=== PATIENT | male | born 1985 | race Hispanic/Latino ===

== ENCOUNTER 2019-04-01 13:34 | Emergency (ER) | payer OTHER ==
[2019-04-01] MEDS ORDERED: NAPROXEN 500 MG TABLET ONE (14:13)
== END 2019-04-01 14:53 | disposition home or self-care (01) ==
LOC: EDH 13:34
DX: S93.492A Sprain of other ligament of left ankle, initial encounter (principal); F41.9 Anxiety disorder, unspecified; I10 Essential (primary) hypertension; Z72.0 Tobacco use; X50.0XXA Overexertion from strenuous movement or load, initial encounter; Y93.89 Activity, other specified; Y92.89 Other specified places as the place of occurrence of the external cause; Y99.8 Other external cause status
CPT/HCPCS: 73610

== ENCOUNTER 2019-08-12 21:33 | Emergency (ER) | payer SELFPAY | END 2019-08-12 22:46 | disposition home or self-care (01) | LOC: EDH 21:33 | DX: H10.10 Acute atopic conjunctivitis, unspecified eye (principal); F41.9 Anxiety disorder, unspecified; I10 Essential (primary) hypertension; Z90.49 Acquired absence of other specified parts of digestive tract; Z72.0 Tobacco use; Z88.6 Allergy status to analgesic agent | CPT/HCPCS: 82948 ==

== ENCOUNTER 2019-10-30 07:09 | Emergency (ER) | payer SELFPAY ==
[2019-10-30] MEDS ORDERED: CEFTRIAXONE SODIUM 500 MG VIAL ONE (07:49)
[2019-10-30] MEDS ORDERED: KETOROLAC TROMETHAMINE 60 MG/2 ML VIAL ONE (07:50)
[2019-10-30] MEDS ORDERED: AZITHROMYCIN 250 MG TABLET PO ONE (07:50)
[2019-10-30] MEDS ORDERED: DOXYCYCLINE HYCLATE 100 MG TABLET PO ONE (07:50)
[2019-10-30] MEDS ORDERED: LIDOCAINE HCL-MPF 1% 2ML VIAL ONE (07:51)
[2019-10-30 08:34] LABS: APPEARANCE,URINE Clear (CLEAR); BILIRUBIN,URINE Small (NEGATIVE); COLOR,URINE Dark Yellow (YELLOW); GLUCOSE, URINE (UA) Negative (NEGATIVE); KETONES,URINE Trace mg/dL (NEGATIVE); LEUKOCYTE ESTERASE ,URINE Negative (NEGATIVE); NITRATE,URINE Negative (NEGATIVE); OCCULT BLOOD,URINE Negative (NEGATIVE); PH,URINE 5.5 (5.0-8.0); PROTEIN,URINE POS 1+ mg/dL (NEGATIVE)
[2019-10-30 08:41] LABS: BACTERIA,URINE Rare /HPF (None Seen); MUCUS,URINE Many LPF (None Seen); RBC,URINE 0-1 /HPF (0-1); SQUAMOUS EPITHELIAL CELL,UR Rare /HPF (0-2); WBC,URINE 0-1 /HPF (0-1)
== END 2019-10-30 08:57 | disposition home or self-care (01) ==
LOC: EDH 07:09
DX: N47.2 Paraphimosis (principal); I10 Essential (primary) hypertension; F41.9 Anxiety disorder, unspecified; Z88.8 Allergy status to other drugs, medicaments and biological substances; Z90.49 Acquired absence of other specified parts of digestive tract; Z72.0 Tobacco use
CPT/HCPCS: 81001; 87486; 87797; 96372 ×2; 99284; J0696; J1885; J3490

== ENCOUNTER 2020-05-15 09:00 | Emergency (ER) | payer SELFPAY | END 2020-05-15 10:22 | disposition home or self-care (01) | LOC: EDH 09:00 | DX: S93.505A Unspecified sprain of left lesser toe(s), initial encounter (principal); F41.9 Anxiety disorder, unspecified; I10 Essential (primary) hypertension; Z90.49 Acquired absence of other specified parts of digestive tract; Z72.0 Tobacco use; Z88.8 Allergy status to other drugs, medicaments and biological substances; X58.XXXA Exposure to other specified factors, initial encounter; Y93.89 Activity, other specified; Y92.098 Other place in other non-institutional residence as the place of occurrence of the external cause; Y99.8 Other external cause status | CPT/HCPCS: 73630 ==

== ENCOUNTER 2020-10-30 07:52 | Emergency (ER) | payer SELFPAY ==
[2020-10-30] MEDS ORDERED: ACETAMINOPHEN 500 MG TABLET ONE (08:12)
[2020-10-30] MEDS ORDERED: KETOROLAC 60 MG VIAL (30MG/ML) ONE (08:12)
== END 2020-10-30 08:56 | disposition home or self-care (01) ==
LOC: EDH 07:52
DX: S83.91XA Sprain of unspecified site of right knee, initial encounter (principal); R03.0 Elevated blood-pressure reading, without diagnosis of hypertension; Z90.49 Acquired absence of other specified parts of digestive tract; Z72.0 Tobacco use; Z88.2 Allergy status to sulfonamides; X58.XXXA Exposure to other specified factors, initial encounter; Y93.89 Activity, other specified; Y92.098 Other place in other non-institutional residence as the place of occurrence of the external cause; Y99.8 Other external cause status
CPT/HCPCS: 73562; 96372; 99283; J1885

== ENCOUNTER 2025-07-19 14:12 | Emergency (ER) | payer SELFPAY ==
[~2025-07-19] VITALS: Ht 170.2 cm; Wt 79.4 kg
[2025-07-19] MEDS ORDERED: FIORIT PO (14:26)
--- NOTE | 2025-07-19 14:28 | ERN ---
ED Note History of Present Illness Stated Complaint: HEADACHE Chief Complaint: Headache Time Seen by MD: 14:14 Dictation: PATIENT IS A 40-YEAR-OLD MALE COMING IN TODAY WITH COMPLAINTS OF A BILATERAL OCCIPITAL HEADACHE THAT RADIATES TO THE BILATERAL TEMPORAL AREA, ONSET . HE DENIES IT BEING A 0 TYPE HEADACHE. HE HAS HAD NO NAUSEA VOMITING NO FEVER NO CHILLS NO HYPERTENSION IN THE EMERGENCY ROOM. STATES HE HAS NO PRIMARY CARE DOCTOR. HE STATES HE TOOK A MEDICATION FROM HIS SISTER TODAY WHO HAS MIGRAINE HEADACHES AND HOWEVER IT DID NOT RELIEVE THE PAIN. NIH IS 0. Allergies: Coded Allergies: No Known Drug Allergies (Unverified Allergy, Unknown, 04/01/19) diphenhydramine (Unverified Allergy, Unknown, 05/15/20) Past Medical History Past Medical History: Migraines Surgical History: None RN Note Reviewed/Agreed w/PFSH: Yes Review of System Dictation CONSTITUTIONAL: NEGATIVE EXCEPT FOR HPI HEAD/FACE: NEGATIVE EXCEPT FOR HPI EENT: NEGATIVE EXCEPT FOR HPI RESPIRATORY: NEGATIVE EXCEPT FOR HPI GASTROINTESTINAL/ABDOMINAL: NEGATIVE EXCEPT FOR HPI GENITOURINARY: NEGATIVE EXCEPT FOR HPI MUSCULOSKELETAL: NEGATIVE EXCEPT FOR HPI INTEGUMENTARY: NEGATIVE EXCEPT FOR HPI NEUROLOGICAL/PSYCH: NEGATIVE EXCEPT FOR HPI HEADACHE HEMATOLOGIC/LYMPHATIC: NEGATIVE EXCEPT FOR HPI ALL SYSTEMS NEGATIVE, EXCEPT NOTED ABOVE. 13 POINT REVIEW OF SYSTEMS ASSESSED AND ALL NEGATIVE EXCEPT FOR ABOVE. Initial Vital Sign VS Vital Signs Date Time Temp Pulse Resp B/P (MAP) Pulse Ox O2 Delivery O2 Flow Rate FiO2 07/19/25 14:14 98.1 70 18 123/82 98 Physical Exam Dictation VITAL SIGNS REVIEWED GENERAL APPEARANCE: ALERT, ORIENTED X 3, N MODERATE CUTE DISTRESS, WELL DEVELOPED, NOURISHED. HEAD AND FACE: NON-TRAUMATIC. EYES: PERRL, PINK CONJUNCTIVAS, EYELID NO TRAUMA, ANTERIOR CHAMBER WITH ARCUS SENILIS. EARS: PINNAS INTACT AND NO SIGNS OF TRAUMA OR ERYTHEMA EAR CANALS CLEAR AND NO DISCHARGE TM NO ERYTHEMA NOSE: NO DISCHARGE, NO BLEEDING. OROPHARYNX: MOUTH NORMAL, TONGUE PINK, PHARYNX CLEAR,NO ERYTHEMA, TONSILS NO EXUDATES, NO ABSCESSES NOTED, MUCOUS MEMBRANE MOIST NECK: SUPPLE, NON-TENDER, NO THYROMEGALY, NO MASSES, NO JVD, NO BRUITS BREAST:DEFERRED CHEST:NO TENDERNESS, NO CREPITUS, NO PARADOXICAL MOVEMENT, NO RETRACTIONS LUNGS:CLEAR, WELL-VENTILATED, SYMMETRIC, NO RALES, NO WHEEZING, NO RHONCHI, NO STRIDOR, GOOD BREATH SOUNDS BILATERALLY HEART: REGULAR RATE, REGULAR RHYTHM, NO MURMUR, NO GALLOPS VASCULAR: NO PERIPHERAL EDEMA, ABDOMEN: SOFT, POSITIVE BOWEL SOUNDS, NONDISTENDED, NO GUARDING, NONTENDER, NO REBOUND, NO MASSES NO HEPATOMEGALY, NO SPLENOMEGALY, NO ALICIA'S SIGN, NO HERNIAS. RECTAL: DEFERRED GENITAL: DEFERRED NEUROLOGICAL: NORMAL SPEECH, MOTOR FUNCTION INTACT, SENSORY FUNCTION INTACT NIH IS 0 MUSCULOSKELETAL: NECK NONTENDER, FULL RANGE OF MOTION, BACK NONTENDER, FULL RANGE OF MOTION, EXTREMITIES: NONTENDER, FULL RANGE OF MOTION SKIN: COLOR PINK, DRY, NO TURGOR, NO RASH, NO LACERATIONS, NO ABRASIONS, NO CONTUSIONS. LYMPHATIC: DEFERRED Results (Laboratory/Radiology) Labs Reviewed?: Yes ED Course ED Course Orders Procedure Category Date Status Time Acetaminophen 500mg PHA 07/19/25 Verified Tab (Tylenol 500mg T 14:30 Dexamethasone 4mg/Ml PHA 07/19/25 Verified 1ml Vial (Dexametha 14:30 Ketorolac 60mg/2ml PHA 07/19/25 Verified (Toradol 60mg/2ml) 14:30 Vital Signs Date Time Temp Pulse Resp B/P (MAP) Pulse Ox O2 Delivery O2 Flow Rate FiO2 07/19/25 14:14 98.1 70 18 123/82 98 1425/NO LABS OR IMAGING INDICATED. PATIENT IS AFEBRILE. 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 Medical Decision Making MDM MEDICAL DISCHARGE MAKING BASED ON EMPIRIC TREATMENT FOR AN ACUTE TENSION TYPE HEADACHE. PATIENT GIVEN DECADRON, TORADOL, ACETAMINOPHEN DISCHARGED HOME WITH FIORICET GIVEN A LIST OF PRIMARY CARE DOCTORS ON STAFF TO FOLLOW UP WITH NEXT WEEK. NIH IS 0 ON APPROACH AND DISCHARGE, GAIT IS STEADY. DX & DISP Disposition: Discharge Departure Impression: Primary Impression: Acute tension headache Condition: Stable Scripts Butalb/Acetaminophen/Caffeine (Fioricet) 50 Mg-325 Mg-40 Mg Tab 2 TAB PO Q4HPRN for HEADACHE, #15 TAB 0 Refills Prov: LIBIA JACKSON 07/19/25 Additional Instructions: Follow-up with primary care provider in 1 to 2 days. Take medications as directed here in the emergency room. Okay to continue home medications unless otherwise discussed during your visit in the emergency room today. Return to your nearest emergency room if symptoms worsen or if there is no improvement. Call 911 if you need immediate assistance. Take Tylenol or Motrin [id number] as needed and if no contraindications are present. Increase oral hydration. A wound culture or urine culture was ordered here in the emergency room department please follow-up with primary care provider and advise them to get repeat ports from our facility. If you had any Jarrett wrap/splints that were applied here, please do not remove them until you see your primary care or specialty. Take Fioricet as directed for your headaches. Increase your water intake. Follow up with one of the doctors on the list provided you in the next 2-3 days for management if no improvement. Referrals: SELF,REFERRAL (PCP) Time of Disposition: 14:25 I have reviewed the case, and I agree with, Diagnosis and Plan LIBIA JACKSONP Jul 19, 2025 14:28
[2025-07-19 15:58] VITALS: BP 124/73; PULSE 58; RESP 18; TEMP 98.7; O2SAT 98
== END 2025-07-19 16:07 | disposition home or self-care (01) ==
LOC: EDH 14:12
DX: G44.209 Tension-type headache, unspecified, not intractable (principal); G43.909 Migraine, unspecified, not intractable, without status migrainosus; Z88.8 Allergy status to other drugs, medicaments and biological substances
CPT/HCPCS: 99284; 96372 ×2; J1100; J1885